=== PATIENT | male | born 1975 | race Caucasian/White ===

== ENCOUNTER 2016-12-02 14:09 | Emergency (ER) | payer OTHER ==
[~2016-12-02] VITALS: Ht 162.6 cm; Wt 83.0 kg
[~2016-12-02 14:09] MED LIST: ALLO300 PO; INDO50CA PO
[2016-12-02 14:12] VITALS: BP 137/84; PULSE 86; RESP 14; TEMP 97.6; O2SAT 98
[2016-12-02] MEDS ORDERED: ZOLO100T PO (15:47)
[2016-12-02] MEDS ORDERED: INDO50CA PO (15:47)
[2016-12-02] MEDS ORDERED: DIAZ10TA PO (15:47)
--- NOTE | 2016-12-02 15:58 | PD ---
HPI Chief Complaint: Edema Time Seen by Provider: 15:58 Travel History International Travel<30 days: No Contact w/Intl Traveler<30days: No Traveled to known affect area: No History of Present Illness HPI 41-year-old male presents to the emergency Department with complaint of left ankle swelling and pain for 2 days. Denies injury or strain. Reports pain in the left calf that radiates around to the left jones. Denies erythema or edema to the calf area. Reports a tingling sensation in his left foot. Otherwise denies loss of sensation, decreased range of motion, decreased strength. Pain is worse with walking. Has history of gout and thought maybe he had a gout exacerbation and has been taking his medication with no improvement. Does not recall the name of the medication he takes. Denies history of DVT/PE. Denies recent surgery, hospitalization, travel. Denies anticoagulants. Denies fever, chills, nausea, vomiting. Denies chest pain, shortness of breath, abdominal pain. No known allergies. Denies other significant past medical history. No other modifying factors or associated signs and symptoms. PFSH Past Medical History Blood Disorders: No Anxiety: Yes Depression: Yes Cancer: No Cardiovascular Problems: No Endocrine: No Genitourinary: No Musculoskeletal: No Neurologic: No Psychiatric: No Reproductive: No Respiratory: No Tetanus Vaccination: < 5 Years Past Surgical History Surgical History: No Previous Surgery Pacemaker: No Other Surgery: Yes Social History Alcohol Use: Yes Tobacco Use: Yes Substance Use: No Allergies-Medications (Allergen,Severity, Reaction): Coded Allergies: No Known Allergies (Unverified , 12/02/16) Reported Meds & Prescriptions Reported Meds & Active Scripts Active Naproxen 500 Mg Tab 500 Mg PO BID 7 Days Deltasone (Prednisone) 20 Mg Tab 40 Mg PO DAILY 5 Days Indomethacin 50 Mg Cap 50 Mg PO TID Reported Diazepam 10 Mg Tab 10 Mg PO HS PRN Zoloft (Sertraline HCl) 100 Mg Tab 100 Mg PO DAILY Indomethacin 50 Mg Cap 50 Mg PO TID PRN Take with food, milk, or antacids to decrease stomach adverse effects. Zyloprim 300 Mg Tab (Allopurinol) 300 Mg Tab 300 Mg PO DAILY Review of Systems Except as stated in HPI: all other systems reviewed are Neg Physical Exam Narrative GENERAL: Well-nourished, well-developed male patient, in no acute distress SKIN: Warm and dry. HEAD: Atraumatic. Normocephalic. EYES: Pupils equal and round. No scleral icterus. No injection or drainage. ENT: Mucosa pink and moist. Airway patent. NECK: Trachea midline. CARDIOVASCULAR: Regular rate and rhythm. No murmur appreciated. RESPIRATORY: No accessory muscle use. Clear and equal to auscultation bilaterally. GASTROINTESTINAL: Rounded. MUSCULOSKELETAL: Left ankle is edematous with nonpitting edema. Left lower extremity supple and non-tense with 2+ pedal pulse and sensory intact without erythema or edema. Reproducible tenderness on palpation to the posterior upper calf; without erythema or edema. No obvious deformities. No clubbing. No cyanosis. NEUROLOGICAL: Awake and alert. Oriented 3. No obvious cranial nerve deficits. Motor grossly within normal limits. Normal speech. PSYCHIATRIC: Appropriate mood and affect; insight and judgment normal. Data Data Last Documented VS Vital Signs Date Time Temp Pulse Resp B/P Pulse Ox O2 Delivery O2 Flow Rate FiO2 12/02/16 14:12 97.6 86 14 137/84 98 Room Air Orders Ankle, Complete ([id number]) (12/02/16 15:58) Us Leg Venous Doppler (12/02/16 ) Splint Or Brace Apply/Monitor (12/02/16 17:50) Crutches (12/02/16 17:50) MDM Medical Decision Making Medical Screen Exam Complete: Yes Emergency Medical Condition: Yes Medical Record Reviewed: Yes Differential Diagnosis Deep vein thrombosis, superficial vein thrombosis, gout exacerbation, ankle strain Narrative Course 41-year-old male with left ankle edema without injury and left calf pain. History of gout; has been taking his Medication with no improvement in symptoms. Findings do not seem to be consistent with a gout exacerbation. Left ankle x-ray ordered. Left leg venous ultrasound ordered. 1746: Left ankle x-ray with soft tissue swelling and no acute fracture. Left leg venous ultrasound with no DVT. I will give the patient a prescription for Deltasone and naproxen for possible gout exacerbation. Crutches and ankle stirrup splint provided for support. Deltasone and naproxen prescribed for home. Patient is medically cleared and stable for discharge. Discussed reasons to return to the emergency department. Instructed patient to follow up with primary care provider. Patient agrees with treatment plan. The patients vital signs are stable and the patient is stable for outpatient follow-up and treatment. Patient discharged home, stable and in no acute distress. Diagnosis Primary Impression: Left ankle swelling Referrals: Primary Care Physician Patient Instructions: Ankle Stirrup Splint (ED), Crutch Instructions (ED), Edema (ED), General Instructions, Gout (ED) Departure Forms: Tests/Procedures, Work Release Enter return to work date: Dec 07, 2016 Additional Instructions: Ibuprofen or Tylenol as instructed and as needed for pain and inflammation Rest, ice, compress, and elevate extremity to decrease pain and inflammation Brace for support Crutches for support Avoid aggravating activity; increase activity as tolerated Follow-up with primary care provider Return to the emergency department immediately with worsening symptoms Med/Other Pt SpecificInfo: Prescription(s) given Scripts Naproxen 500 Mg Uov779 Mg PO BID 7 Days Ref 0 Prov:Yadira Lozoya 12/02/16 Prednisone (Deltasone)20 Mg Tab40 Mg PO DAILY 5 Days Ref 0 Prov:Yadira Lozoya 12/02/16 Disposition: 01 DISCHARGE HOME Condition: Stable Yadira Lozoya Dec 02, 2016 15:58
--- NOTE | 2016-12-02 16:41 | RADRPT ---
EXAM DATE/TIME: 12/02/2016 16:16 [facility] COMPARISON: No previous studies available for comparison. INDICATIONS : Patient complains of swelling and pain on lateral aspect of left ankle. No known injury. MEDICAL HISTORY : None. SURGICAL HISTORY : None. ENCOUNTER: Initial ACUITY: 2 days PAIN SCORE: 6/10 LOCATION: Left ankle FINDINGS: Mild soft-tissue swelling is noted along the lateral malleolus. There is no acute fracture or disloc ation. Mild degenerative changes are noted. CONCLUSION: 1. Mild soft tissue swelling along the lateral malleolus. 2. Mild degenerative changes involving the left ankle joint. 3. No acute fracture or dislocation. Travon Pelayo MD on December 02, 2016 at 16:34 Board Certified Radiologist. This report was verified electronically.
--- NOTE | 2016-12-02 17:00 | RADRPT ---
EXAM DATE/TIME: 12/02/2016 16:36 [facility] COMPARISON: No previous studies available for comparison. INDICATIONS : Left leg pain and swelling. MEDICAL HISTORY : Left leg edema. Depression. Anxiety. SURGICAL HISTORY : None. ENCOUNTER: Initial ACUITY: 2 day PAIN SCORE: 10/10 LOCATION: Left leg. TECHNIQUE: Venous ultrasound of the leg was performed from the inguinal ligament to the proximal calf. Real-loan e, color Doppler and spectral tracing, compression and augmentation techniques were used. FINDINGS: There is normal compressibility of the deep venous system from the inguinal region to the proximal ca lf. No echogenic clot is seen in the lumen of the common femoral, femoral, popliteal, and posterior tibial veins. There is a normal response of the venous system to proximal and distal augmentation an d respiration. CONCLUSION: No evidence of deep venous thrombosis within the left lower extremity. Travon Pelayo MD on December 02, 2016 at 16:59 Board Certified Radiologist. This report was verified electronically.
[2016-12-02] MEDS ORDERED: PRED-503 PO (17:47)
[2016-12-02] MEDS ORDERED: NAPR500T PO (17:50)
== END 2016-12-02 18:06 | disposition home or self-care (01) ==
LOC: NEPB 14:09
DX: M25.472 Effusion, left ankle (principal); Z72.0 Tobacco use
CPT/HCPCS: 73610; 93971; 99284; E0113; L1906